=== PATIENT | male | born 1980 | race Caucasian/White ===

== ENCOUNTER 2017-05-14 14:53 | Emergency (ER) | payer OTHER ==
[~2017-05-14] VITALS: Ht 175.3 cm; Wt 90.7 kg
--- OUTSIDE RECORDS SUMMARY | 2017-05-14 14:55 | XMS REPORT | Clinical Summary ---
Author Author [facility] Address Unknown Phone Unavailable Care Team Providers Care Clinical Athletic Instructor Name Role Phone Asked, Pcp PCP Unavailable Allergies Active Allergy Reactions Severity Noted Date Comments Amoxicillin 06/29/2016 Sulfamethoxazole-Trimetho Shortness Of Breath, Rash High 06/29/2016 prim Hydrochlorothiazide Other (See Comments) 06/29/2016 Hypotensive. Morphine Shortness Of Breath, Rash High 06/29/2016 Penicillins Shortness Of Breath, Rash High 06/29/2016 Current Medications Prescription Sig. Disp. Refills Start End Date Status Date atorvastatin (LIPITOR) 20 Take 1 tablet (20 mg 30 tablet 0 07/01/19 07/31/19 MG tablet total) by mouth nightly 17 17 for 30 days. Default OP ins aspirin (ECOTRIN) 81 MG Take 1 tablet (81 mg 30 tablet 0 07/01/19 enteric coated tablet total) by mouth daily for 17 17 30 days. Active Problems Problem Noted Date Chest pain 06/29/2016 Encounters Date Type Specialty Care Team Description 09/03/2016 Abstract Orthopedic Surgery Conrado Dang MD 06/30/2016 Patient Quality Terrance Peters, DustinD Outreach 06/29/2016 [facility] Cardiovascular Sarah Cortez MD Other chest pain (Primary - Encounter Dx) 06/30/2016 after 05/13/2016 Social History Tobacco Use Types Packs/Day Years Used Date Never Smoker Alcohol Use Drinks/Week oz/Week Comments Yes Occaisional; Social drinker. Sex Assigned at Date Recorded Not on file Last Filed Vital Signs Vital Sign Reading Time Taken Blood Pressure 138/90 06/30/2016 11:27 AM CDT Pulse 72 06/30/2016 11:27 AM CDT Temperature 36.3 C (97.3 F) 06/30/2016 11:27 AM CDT Respiratory Rate 18 06/30/2016 11:27 AM CDT Oxygen Saturation 97% 06/30/2016 11:27 AM CDT Inhaled Oxygen - - Concentration Weight 97.5 kg (215 lb) 06/30/2016 4:44 AM CDT Height 170.2 cm (5' 7") 06/30/2016 4:44 AM CDT Body Mass Index 33.67 06/30/2016 4:44 AM CDT Plan of Treatment Health Maintenance Due Date Last Done Comments INFLUENZA VACCINE 09/15/2016 Results * ECG 12 lead (06/30/2016 8:09 AM) Only the most recent of 3 results within the time period is included. Component Value Ref Range Ventricular rate 68 Atrial rate 68 ID interval 148 QRSD interval 90 QT interval 384 QTC interval 408 P axis 1 39 QRS axis 1 50 T wave axis 27 EKG impression Normal sinus rhythm-Normal ECG-In automated comparison with ECG of 30-JUN-2016 04:02,-No significant change was found- Specimen Performing Laboratory [facility] MUSE [address] [place], [place] [id number] * Ionized calcium (06/30/2016 5:30 AM) Component Value Ref Range pH 7.39 Ionized calcium 1.17 1.11 - 1.32 mmol/L Specimen Performing Laboratory Plasma specimen [facility] DEPARTMENT OF PATHOLOGY AND GENOMIC MEDICINE [address] [place] [id number] * Troponin (06/30/2016 4:28 AM) Only the most recent of 2 results within the time period is included. Component Value Ref Range Troponin <0.30 0.00 - 0.30 ng/mL Comment: 0.30 - 1.49 ng/ml May indicate increased risk of acute coronary syndrome. >=1.5 ng/ml Consistent with acute myocardial infarction. The diagnostic value of a single normal or non-diagnostic result is questionable. Serial samples at 2-6 hour intervals are required to rule out acute myocardial injury. Specimen Performing Laboratory Plasma specimen [facility] DEPARTMENT OF PATHOLOGY AND GENOMIC MEDICINE [address] [place], [place] [id number] * Urine drugs of abuse screen (06/30/2016 12:48 AM) Component Value Ref Range Amphetamine screen, urine Negative Barbiturate screen, urine Negative Benzodiazepine screen, Negative urine Cannabinoid screen, urine Negative Cocaine screen, urine Negative Methadone metabolite Negative (EDDP), urine Opiates screen, urine Negative Oxycodone screen, urine Negative Phencyclidine screen, Negative urine Tricyclic screen, urine Negative Comment: Drug screen minimum concentration of detectability Amphetamines 1000 ng/mL Barbiturates 200 ng/mL Benzodiazepines 300 ng/mL Cocaine 300 ng/mL Methadone 3 00 ng/mL Opiates 300 ng/mL Oxycodone 3 00 ng/mL Phencyclidine 25 ng/mL Cannabinoids 50 ng/mL Tricyclics 1000 ng/mL Negative test results indicates presumptive evidence of lack of clinically significant drug concentration in this urine specimen. Positive test results are presumptive evidence of clinically significant drug concentration in this urine specimen. Testing performed for medical purposes only. Specimen Performing Laboratory Urine [facility] DEPARTMENT OF PATHOLOGY AND GENOMIC MEDICINE [address] [place] [address] * Estimated GFR (06/30/2016 12:15 AM) Component Value Ref Range GFR Non Af Amer >90 mL/min/1.73 m2 GFR Af Amer >90 mL/min/1.73 m2 Comment: Chronic kidney disease: <60 mL/min/1.73m2 Kidney failure: <15 mL/min/1.73m2 The estimated GFR is calculated from the IDMS-traceable Modification of Diet in Renal Disease Equation. The accuracy of the calculation is poor when the creatinine is normal. Calculated values >90 mL/min/1.73m2 are not reported. This equation has not been validated in children (<18 years), women, the elderly (>70 years), or ethnic groups other than Caucasians and Americans. Specimen Performing Laboratory Plasma specimen [facility] DEPARTMENT OF PATHOLOGY AND GENOMIC MEDICINE [address] [place] [id number] * Thyroid stimulating hormone (06/30/2016 12:15 AM) Component Value Ref Range TSH 2.19 0.27 - 4.20 uIU/mL Specimen Performing Laboratory Plasma specimen [facility] DEPARTMENT OF PATHOLOGY AND GENOMIC MEDICINE [address] [place] [address] * Hemoglobin A1c (06/30/2016 12:15 AM) Component Value Ref Range Hemoglobin A1C 5.3 4.0 - 5.6 % Comment: HbA1c cutoffs for diagnosing diabetes: 4.0% - 5.6%=normal 5.7% - 6.4%=increased risk for diabetes (prediabetes) >=6.5%=diabetes Goals for glycemic control (ADA 2016) < 7.0% Target for non adults with diabetes. More or less stringent targets may be appropriate for individual patients. <7.5% Target for Children and adolescents with type 1 diabetes. Specimen Performing Laboratory Blood [facility] DEPARTMENT OF PATHOLOGY AND GENOMIC MEDICINE [address] [place] [address] * Lipid panel (06/30/2016 12:15 AM) Component Value Ref Range Cholesterol 177 <200 mg/dL Triglycerides 290 (H) <150 mg/dL HDL cholesterol 37 (L) >40 mg/dL LDL cholesterol 116 (H)Comment: Result obtained by direct LDL <100 mg/dL measurement Lipid panel SeeBelow interpretation Comment: Total Cholesterol (mg/dL) <200 Desirable 200-239 Borderline-high >=240 High Triglycerides (mg/dL) <150 Normal 150-199 Borderline-high 200-499 High >=500 Very high HDL Cholesterol (mg/dL) <40 Low (male) <40 Low (female) LDL Cholesterol (mg/dL) <100 Optimal 100-129 Near or above optimal 130-159 Borderline-high 160-189 High >=190 Very high Risk Catergories that modify LDL goals. Risk Catergories LDL goal (mg/dL) CHD and CHD risk equivalent <100 (10-year risk >20%) Multiple (2+) risk factors <130 (10-year risk=<20%) 0-1 risk factors <160 (<10-year risk) Defining levels of lipids in metabolic syndrome Triglycerides >=150 mg/dL HDL Cholesterol Men <40 mg/dL Women <40 mg/dL Non-HDL cholesterol is a second target for therapy in persons with high triglycerides (>=200 mg/dL) Specimen Performing Laboratory Plasma specimen [facility] DEPARTMENT OF PATHOLOGY AND GENOMIC MEDICINE [address] [place] [address] * Comprehensive metabolic panel (06/30/2016 12:15 AM) Component Value Ref Range Sodium 140 135 - 148 mEq/L Potassium 3.8 3.5 - 5.0 mEq/L Chloride 102 98 - 112 mEq/L CO2 25 24 - 31 mEq/L Anion gap 13 7 - 15 mEq/L Comment: Starting from May , anion gap calculation no longer incorporates potassium. Please note the change. BUN 16 6 - 20 mg/dL Creatinine 0.9 0.7 - 1.2 mg/dL Glucose 112 (H) 65 - 99 mg/dL Calcium 8.9 8.3 - 10.2 mg/dL Protein 6.2 (L) 6.3 - 8.3 g/dL Comment: 4.6-7.0 g/dL 1 week 4.4-7.6 g/dL 7 months-1year 5.1-7.3 g/dL 1-2 years 5.6-7.5 g/dL >3 years 6.0-8.0 g/dL 18-150 6.3-8.3 g/dL Albumin 3.5 3.5 - 5.0 g/dL A/G ratio 1.3 0.7 - 3.8 Alkaline phosphatase 62 40 - 129 U/L AST 21 10 - 50 U/L ALT 25 5 - 50 U/L Total bilirubin 0.3 0.0 - 1.2 mg/dL Specimen Performing Laboratory Plasma specimen [facility] DEPARTMENT OF PATHOLOGY AND GENOMIC MEDICINE [address] [place] [address] after 05/13/2016 Insurance Payer Benefit Subscriber ID Type Phone Address Plan / Group AETNA AETNA xxxxxxxxxx HMO HMO,POS,EP O, MC/EC
== END 2017-05-14 15:09 | disposition left against medical advice (07) ==
LOC: ER 14:53
DX: S99.912A Unspecified injury of left ankle, initial encounter (principal)

== ENCOUNTER → 2017-05-24 | Outpatient (CLI) | payer OTHER ==
--- NOTE | 2017-05-25 07:46 | Diagnostic Imaging Report ---
TECHNIQUE: Magnetic resonance imaging of the LEFT ANKLE was performed WITHOUT injected contrast. COMPARISON: None available. HISTORY: Left lateral ankle pain FINDINGS: LIGAMENTS: Medial Complex: Intact Lateral Complex: Tibiofibular ligaments intact. Severe attenuation of the anterior talofibular ligament. Calcaneofibular ligament intact TENDONS: Medial: Posterior tibial and flexor tendons are intact. Peritendinous edema around the distal posterior tibial tendon. Lateral: Common peroneal tenosynovitis. Peroneal tendons intact. Anterior: Anterior tibial and extensor tendons are intact. Achilles: Achilles tendon intact BONES: No focal or infiltrative bone marrow replacing abnormality. No acute fracture or osteonecrosis. JOINTS: Cartilage: No focal defect is identified involving the tibiotalar joint. Other: Fluid within the joints is within physiologic limits. SOFT TISSUES: Otherwise, unremarkable. IMPRESSION: Common peroneal tenosynovitis. Scarring of the anterior talofibular ligament from prior injury. Signed by: Dr. Prince Alcocer M.D. on 05/25/2017 7:42 AM
== END | disposition home or self-care (01) ==
LOC: MRI 14:01
PROVIDERS: ATTEND Family Medicine
DX: M25.572 Pain in left ankle and joints of left foot (principal); S93.412A Sprain of calcaneofibular ligament of left ankle, initial encounter; S93.432A Sprain of tibiofibular ligament of left ankle, initial encounter; M65.872 Other synovitis and tenosynovitis, left ankle and foot

== ENCOUNTER → 2018-11-23 | Outpatient (CLI) | payer OTHER ==
--- NOTE | 2018-11-23 13:19 | Diagnostic Imaging Report ---
EXAM: Focused Soft Tissue Ultrasound Evaluation of the lower back INDICATION: ^PALPABLE MASS OF LOWER BACK COMPARISON: None TECHNIQUE: Velasco scale, color Doppler images of the area of clinical interest (palpable area in the lower back) were obtained. FINDINGS: Targeted sonographic evaluation of the area of clinical interest in the lower back demonstrates no mass or fluid collection to correspond with the clinically palpable soft tissue abnormality. IMPRESSION: No focal mass or fluid collection in the area of palpable soft tissue abnormality. Signed by: Rene Briceño MD on 11/23/2018 1:15 PM
--- NOTE | 2018-11-23 13:36 | Diagnostic Imaging Report ---
EXAM: Focused Soft Tissue Ultrasound Evaluation of right posterior neck INDICATION: ^[id number] ^1248 ^HEAD OR NECK SWELLING,MASS OR LUMP COMPARISON: None TECHNIQUE: Velasco scale, color Doppler images of the area of clinical interest at the right posterior neck were obtained. FINDINGS: Targeted sonographic evaluation of the area of clinical interest in the right posterior neck demonstrates a 2.3 x 0.9 x 1.5 cm well-circumscribed mass which appears to contain fat as well as soft tissue. There is internal vascularity associated with the soft tissue component. IMPRESSION: Subcutaneous mass at the right posterior neck measures 2.3 x 0.9 x 1.5 cm and contains both fat and soft tissue components with vascular flow associated with a soft tissue component. RECOMMENDATIONS: Percutaneous biopsy or further evaluation with MRI. Signed by: Rene Briceño MD on 11/23/2018 1:33 PM
== END ==
LOC: US 12:09
PROVIDERS: ATTEND Family Medicine
DX: R22.2 Localized swelling, mass and lump, trunk (principal); R22.0 Localized swelling, mass and lump, head
CPT/HCPCS: 76536; 76882

== ENCOUNTER 2019-01-13 05:13 | Emergency (ER) | payer OTHER ==
[~2019-01-13] VITALS: Ht 175.3 cm; Wt 90.7 kg
--- OUTSIDE RECORDS SUMMARY | 2019-01-13 05:16 | XMS REPORT ---
Author Author [facility] Address Unknown Phone Unavailable Care Team Providers Care Engineering Manager Name Role Phone VIANEY FLOWERS Unavailable Unavailable Problems This patient has no known problems. Allergies, Adverse Reactions, Alerts This patient has no known allergies or adverse reactions. Medications This patient has no known medications. Results Test Description Test Time Test Comments Text Results Atomic Results Result Comments CT ABDOMEN/PELVIS WO 2018-12-01 18:35:00 [place] [id number] [place] [address] Patient Name: SAMANTHA HYMAN MR #: [id number] : 1980 Age/Sex: 37/M Req #: [id number] [facility] Physician: Ordered by: VIANEY FLOWERS DO Report #: [id number] Location: CT Room/Bed: Procedure: [id number] CT/CT ABDOMEN/PELVIS WO Exam Date: 12/01/18 Exam Time: 1800 REPORT STATUS: Signed CT Abdomen and Pelvis without contrast INDICATION: 6 days the left flank pain, history of renal stones, [id number] 1800 STONE PROTOCOL TECHNIQUE: Thin collimation axial images obtained from the diaphragm to the level of the pubic symphysis without nonionic intravenous contrast. Dose reduction techniques used: Automated exposure control, adjustment of the mAs and/or kVp according to patient size, standardized low- dose protocol, and/or iterative reconstruction technique. RADIATION DOSE: Total DLP: 544.9 mGy*cm Estimated effective dose: (DLP x 0.015 x size factor) mSv CTDIvol has been reviewed. It is below the limits set by the Radiation Protocol Committee (RPC). COMPARISON: None. ABDOMEN FINDINGS: Lung Bases: Clear. The visualized portion of the mediastinum is normal. Liver: Normal in attenuation without mass. Gallbladder: Present and appears normal. No ductal dilatation. Pancreas: Normal attenuation without mass. Spleen: Normal size without mass. Adrenal Glands: No evidence for mass. Kidneys: Right: There are 2 calculi in the lower pole, the larger measuring 5 mm. No cortical mass or hydronephrosis Left: Tiny calculus in the interpolar region. No cortical mass or hydronephrosis Lymph Nodes: No enlarged abdominal or periaortic lymph nodes. Aorta: Normal in diameter. PELVIS FINDINGS: Bowel: Stomach: Normal. Small Bowel: Normal in caliber with normal wall thickness. Large Bowel: Normal in caliber with normal wall thickness. A few scattered diverticula are present. There are surgical clips at the base of the cecum Appendix: Absent. Bladder: Under distended. No intraluminal calculus. There are calcifications in the prostate gland. Ureters: No ureteral distention or calcification. Peritoneum/retroperitoneum: No free fluid or fluid collection. Soft tissues: There is mesh in the right inguinal region from hernia repair. No hernia recurrence. No evidence of hernia elsewhere. Bones: Unremarkable for age. IMPRESSION: 1. 2 nonobstructing calculi in the right kidney. Tiny calculus in the left kidney. No obstructive uropathy. 2. Mild burden of diverticulosis coli. No evidence for bowel obstruction or inflammation. Appendectomy. 3. Right inguinal hernia repair as described above. Signed by: Dr. Rajinder Stapleton MD on 12/01/2018 6:39 PM Dictated By: RAJINDER STAPLETON MD 38 Transcribed By: HERNANDEZ on 12/01/181838 COPY TO: VIANEY FLOWERS SOFT TISSUE NECK/HEAD 2018-11-23 13:30:00 [place] [address] Patient Name: SAMANTHA HYMAN MR #: [id number] : 1980 Age/Sex: 37/M Req #: [id number] Adm Physician: Ordered by: VIANEY FLOWERS DO Report #: [id number] Location: Room/Bed: Procedure: [id number] US/US SOFT TISSUE NECK/HEAD Exam Date: 11/23/18 Exam Time: 1248 REPORT STATUS: Signed EXAM: Focused Soft Tissue Ultrasound Evaluation of r ight posterior neck INDICATION: [id number] HEAD OR NECK SWELLING,MASS OR LUMP COMPARISON: None TECHNIQUE: Velasco scale, color Doppler images of the area of clinical interest at the right posterior neck were obtained. FINDINGS: Targeted sonographic evaluation of the area of clinical interest in the right posterior neck demonstrates a 2.3 x 0.9 x 1.5 cm well-circumscribed mass which appears to contain fat as well as soft tissue. There is internal vascularity associated with the soft tissue component. IMPRESSION: Subcutaneous mass at the right posterior neck measures 2.3 x 0.9 x 1.5 cm and contains both fat and soft tissue components with vascular flow associated with a soft tissue component. RECOMMENDATIONS: Percutaneous biopsy or further evaluation with MRI. Signed by: Rafat Briceño MD on 11/23/2018 1:33 PM Dictated By: RAFAT BRICEÑO MD 1335 Transcribed By: GERALDINE LOVE on 11/23/18 1339 COPY TO: VIANEY FLOWERS DO EXTREMITY TORRES NON-VAS 2018-11-23 13:14:00 [place] [address] Patient Name: SAMANTHA HYMAN MR #: [id number] : 1980 Age/Sex: 37/M Req #: [id number] Adm Physician: Ordered by: VIANEY FLOWERS DO Report #: [id number] Location: US Room/Bed: Procedure: [id number] US/US EXTREMITY TORRES NON-VAS Exam Date: 11/23/18 Exam Time: 1241 REPORT STATUS: Signed EXAM: Focused Soft Tissue Ultrasound Evaluation of the lower back INDICATION: PALPABLE MASS OF LOWER BACK COMPARISON: None TECHNIQUE: Velasco scale, color Doppler images of the area of clinical interest (palpable area in the lower back) were obtained. FINDINGS: Targeted sonographic evaluation of the area of clinical interest in the lower back demonstrates no mass or fluid collection to correspond with the clinically palpable soft tissue abnormality. IMPRESSION: No focal mass or fluid collection in the area of palpable soft tissue abnormality. Signed by: Rafat Briceño MD on 11/23/2018 1:15 PM Dictated By: RAFAT BRICEÑO MD 14 Transcribed By: HERNANDEZ on 11/23/181314 COPY TO: VIANEY FLOWERS DO MRI ANKLE LEFT [place] [address] Patient Name: SAMANTHA HYMAN MR #: [id number] : 1980 Age/Sex: 36/M Req #: [id number] Adm Physician: Ordered by: VIANEY FLOWERS DO Report #: [id number] Location: MRI Room/Bed: Procedure: [id number] MRI/MRI ANKLE LEFT WO Exam Date: Exam Time: REPORT STATUS: Signed TECHNIQUE: Magnetic resonance imaging of the LEFT ANKLE was performed WITHOUT injected contrast. COMPARISON: None available. HISTORY: Left lateral ankle pain FINDINGS: LIGAMENTS: Medial Complex: Intact Lateral Comple x: Tibiofibular ligaments intact. Severe attenuation of the anterior talofibular ligament. Calcaneofibular ligament intact TENDONS: Medial: Posterior tibial and flexor tendons are intact. Peritendinous edema around the distal posterior tibial tendon. Lateral: Common peroneal tenosynovitis. Peroneal tendons intact. Anterior: Anterior tibial and extensor tendons are intact. Achilles: Achilles tendon intact BONES: No focal or infiltrative bone marrow replacing abnormality. No acute fracture or osteonecrosis. JOINTS: Cartilage: No focal de fect is identified involving the tibiotalar joint. Other: Fluid within the joints is within physiologic limits. SOFT TISSUES: Otherwise, unremarkable. IMPRESSION: Common peroneal tenosynovitis. Scarring of the anterior talofibular ligament from prior injury. Signed by: Dr. Jeannie Carter M.D. on 05/25/2017 7:42 AM Dictated By: JEANNIE CARTER MD 1 Transcribed By: HERNANDEZ on 05/25/17741 COPY TO: VIANEY FLOWERS DO
[2019-01-13] MEDS ORDERED: KETOROLAC TROMETHAMINE 60 MG/2 ML VIAL IM ONE (06:00)
--- NOTE | 2019-01-13 06:33 | Diagnostic Imaging Report ---
EXAM: CT Abdomen and Pelvis WITHOUT contrast INDICATION: Right flank pain. COMPARISON: CT abdomen/pelvis 12/01/2018. TECHNIQUE: Abdomen and pelvis were scanned utilizing a multidetector helical scanner from the lung base to the pubic symphysis without administration of IV contrast. Absence of intravenous contrast decreases sensitivity for detection of focal lesions and vascular pathology. Coronal and sagittal reformations were obtained. Stone protocol is performed. IV CONTRAST: None. ORAL CONTRAST: None. RADIATION DOSE: Total DLP: 612.7 mGy*cm Estimated effective dose: (DLP x 0.015 x size factor) mSv COMPLICATIONS: None FINDINGS: LINES and TUBES: None. LOWER THORAX: A 3 mm solid subpleural nodule in the right lower lobe appears unchanged. HEPATOBILIARY: No focal hepatic lesions. No biliary ductal dilation. GALLBLADDER: No radio-opaque stones or sludge. No wall thickening. SPLEEN: No splenomegaly. PANCREAS: No focal masses or ductal dilatation. ADRENALS: No adrenal nodules KIDNEYS/URETERS: There is mild right hydronephrosis. There is a 4 mm stone in the right posterior bladder, near the UVJ. There is a punctate 2 mm nonobstructing right lower pole renal stone and 1 mm left mid pole renal stone. GI TRACT: No abnormal distention, wall thickening, or evidence of bowel obstruction. Scattered colonic diverticulosis without CT evidence of diverticulitis. Status post appendectomy. Surgical changes at the cecum. PELVIC ORGANS/BLADDER: Unremarkable. LYMPH NODES: No lymphadenopathy. VESSELS: Unremarkable. PERITONEUM / RETROPERITONEUM: No free air or fluid. BONES: Unremarkable. SOFT TISSUES: There is mesh in the right inguinal region from hernia repair. IMPRESSION: A 4 mm stone in the right posterior bladder near the UVJ, consistent with recent passage of stone from the ureter. Mild right hydronephrosis. Additional punctate 1 to 2 mm bilateral nonobstructing renal stones. Signed by: Dr. Faustina Corrales MD on 01/13/2019 6:29 AM
[2019-01-13 06:42] LABS: BILIRUBIN,URINE NEGATIVE (NEGATIVE); COLOR,URINE YELLOW (YELLOW); KETONES,URINE NEGATIVE (NEGATIVE); LEUKOCYTE ESTERASE ,URINE NEGATIVE (NEGATIVE); NITRITE,URINE NEGATIVE (NEGATIVE); PROTEIN,URINE DIPSTICK NEGATIVE (NEGATIVE); URINE UROBILINOGEN 0.2 mg/dL (0.2 - 1)
[2019-01-13 06:43] LABS: CLARITY,URINE HAZY (CLEAR)
[2019-01-13 06:56] LABS: BACTERIA,URINE FEW /HPF; EPITHELIAL CELLS,URINE FEW /LPF; WBC,URINE (MAN) 0-5 /HPF (0-5)
[2019-01-13 07:04] VITALS: BP 134/89
== END 2019-01-13 07:05 | disposition home or self-care (01) ==
LOC: ER 05:13
DX: N13.2 Hydronephrosis with renal and ureteral calculous obstruction (principal); I10 Essential (primary) hypertension
CPT/HCPCS: 74176; 81001; 99283; J1885